=== PATIENT | female | born 1975 | race Caucasian/White ===

== ENCOUNTER 2018-12-16 05:19 | Observation (INO) | payer OTHER ==
[2018-12-16] MEDS ORDERED: DEXTROSE 5%-0.9% NACL 1,000 ML IV (06:00)
[2018-12-16] MEDS: CEFAZOLIN 2 GM/50 ML (PMX) 50 ML IVPB (06:00)
[2018-12-16] MEDS: ACETAMINOPHEN 500 MG TAB PO (06:17)
[2018-12-16] MEDS ORDERED: MIDAZOLAM 1 MG/ML 2 ML INJ (07:24)
[2018-12-16] MEDS ORDERED: PROPOFOL 40 ML (07:24)
[2018-12-16] MEDS ORDERED: ROCURONIUM 50 MG INJ (07:24)
[2018-12-16] MEDS ORDERED: ONDANSETRON 4 MG INJ (07:24)
[2018-12-16] MEDS ORDERED: LIDOCAINE 2% (SDV) 5 ML INJ (07:24)
[2018-12-16] MEDS ORDERED: CEFAZOLIN 1 GM INJ (07:24)
[2018-12-16] MEDS ORDERED: FENTAnyl 50 MCG/ML VIAL (07:24)
[2018-12-16] MEDS ORDERED: FAMOTIDINE 20 MG INJ (07:24)
[2018-12-16] MEDS ORDERED: GLYCOPYRROLATE 0.4 MG INJ (07:24)
[2018-12-16] MEDS ORDERED: DEXAMETHASONE 4 MG/ML 5 ML INJ (07:25)
[2018-12-16] MEDS ORDERED: KETAMINE (50 MG/ML) 10 ML VIAL (07:28)
[2018-12-16] MEDS: POLYMYXIN/BACITRACIN 1L IRRIG (07:28)
[2018-12-16] MEDS: BUPIVACAINE 0.25%/EPI (SDV) 30 ML INJ (07:28)
[2018-12-16] MEDS ORDERED: OXYCODONE/ACETAMINOPHEN (5/325) TAB PO ×2 (07:30)
[2018-12-16] MEDS: SOD CHLORIDE 0.9% 1,000 ML IV (07:30)
[2018-12-16] MEDS ORDERED: LABETALOL HCL 20MG INJ IV (07:30)
[2018-12-16] MEDS ORDERED: FENTAnyl 50 MCG/ML VIAL IV (07:30)
[2018-12-16] MEDS ORDERED: ALBUTEROL 0.083% (NEB) 2.5 MG/3 ML AMP HHN (07:30)
[2018-12-16] MEDS ORDERED: EPHEDrine 25 MG/5 ML SYG IV (07:30)
[2018-12-16] MEDS ORDERED: hydrALAzine 20 MG INJ IV (07:30)
[2018-12-16] MEDS ORDERED: morphine 2 MG INJ IV ×2 (07:30)
[2018-12-16] MEDS ORDERED: HYDROmorphONE 1 MG/5 ML IV SYRINGE IV ×3 (07:30)
[2018-12-16] MEDS ORDERED: DIPHENHYDRAMINE 50 MG INJ IV (07:30)
[2018-12-16] MEDS ORDERED: PHENYLephrine (100 MCG/ML) 10ML SYG (08:44)
[2018-12-16] MEDS: THROMBIN 5000 UNIT (RECOTHROM) VIAL (09:40)
[2018-12-16] MEDS ORDERED: SUGAMMADEX SODIUM 200 MG/2 ML VIAL IV (10:05)
[2018-12-16] MEDS ORDERED: DIPHENHYDRAMINE 50 MG CAP PO (10:30)
[2018-12-16] MEDS ORDERED: HYDROCODONE/APAP (5/325) TAB PO (10:30)
[2018-12-16] MEDS ORDERED: ZOLPIDEM 5 MG TAB PO (10:30)
[2018-12-16] MEDS ORDERED: ONDANSETRON INJ 6 MG in DEXTROSE 5% 50 ML IVPB (10:30)
[2018-12-16] MEDS: MEPERIDINE 25 MG INJ IV (10:46)
[2018-12-16] MEDS: ONDANSETRON 4 MG INJ IV (10:46)
[2018-12-16] MEDS: FENTAnyl 50 MCG/ML VIAL IV (10:54)
[2018-12-16] MEDS: HYDROCODONE/APAP (5/325) TAB PO ×2 (12:46→17:39)
[2018-12-16] MEDS: KETOROLAC 30 MG INJ IV ×2 (13:34→20:24)
[2018-12-16] MEDS: METOCLOPRAMIDE 10 MG TAB PO ×2 (13:36→18:51)
[2018-12-16] MEDS ORDERED: CEFAZOLIN 1 GM/50 ML (PMX) 50 ML IVPB (14:00)
[2018-12-16] MEDS: LACTATED RINGER'S 1,000 ML IV ×2 (17:35→18:26)
[2018-12-16] MEDS: CEFAZOLIN 1 GM/50 ML (PMX) 50 ML IVPB (17:41)
[2018-12-17] MEDS: CEFAZOLIN 1 GM/50 ML (PMX) 50 ML IVPB ×2 (00:23→09:02)
[2018-12-17] MEDS: METOCLOPRAMIDE 10 MG TAB PO ×3 (00:24→12:48)
[2018-12-17] MEDS: HYDROCODONE/APAP (5/325) TAB PO ×2 (00:27→06:13)
[2018-12-17] MEDS: LACTATED RINGER'S 1,000 ML IV ×2 (02:26→10:26)
[2018-12-17] MEDS: KETOROLAC 30 MG INJ IV ×2 (02:50→09:05)
[2018-12-17 05:07] LABS: ADD MAN DIFF? NO
[2018-12-17 05:09] LABS: BASOPHILS % 0.2 % (0.0-2.0); EOSINOPHILS % 0.1 % (0.0-7.0); HEMATOCRIT 32.1 % (37.0-47.0); HEMOGLOBIN 10.2 g/dl (12.0-16.0); LYMPHOCYTES # 1.6 10^3/ul (0.8-2.9); LYMPHOCYTES % 12.7 % (15.0-51.0); MEAN CORPUSCULAR HEMOGLOBIN 29.3 pg (29.0-33.0); MEAN CORPUSCULAR HGB CONC 31.8 g/dl (32.0-37.0); MEAN CORPUSCULAR VOLUME 92.2 fl (82.0-101.0); MEAN PLATELET VOLUME 9.9 fl (7.4-10.4); MONOCYTE # 1.1 10^3/ul (0.3-0.9); MONOCYTES % 8.6 % (0.0-11.0); NEUTROPHILS % 78.1 % (39.0-77.0); PLATELET COUNT 322 10^3/UL (140-415); RED BLOOD COUNT 3.48 10^6/ul (4.20-5.40); RED CELL DISTRIBUTION WIDTH 13.1 % (11.5-14.5)
[2018-12-17 05:09] LABS: WHITE BLOOD COUNT 12.8 10^3/ul (4.8-10.8)
[2018-12-17 05:43] LABS: ANION GAP 5 (5-13); BLOOD UREA NITROGEN 9 mg/dl (7-20); CARBON DIOXIDE 28 mmol/L (21-31); CHLORIDE 107 mmol/L (97-110); CREATININE 0.43 mg/dl (0.44-1.00); POTASSIUM 3.9 mmol/L (3.5-5.1); SODIUM 140 mmol/L (135-144)
[2018-12-17] MEDS: PANTOPRAZOLE (EC) 40 MG TAB PO (06:13)
[2018-12-17] MEDS: SOD CHLORIDE 0.9% 1,000 ML IV (07:30)
[2018-12-17] MEDS ORDERED: ESTRADIOL VALERATE 20 MG/0.5 ML INJ IM (12:00)
== END 2018-12-17 14:12 | disposition home or self-care (01) ==
LOC: SDS 05:19 → REC 10:26 → MS1 11:48
DX: N81.10 Cystocele, unspecified (principal); N39.46 Mixed incontinence
CPT/HCPCS: 57240; 80051; 82565; 84520; 85025; 87086; 93005